=== PATIENT | male | born 1995 | race Caucasian/White ===

== ENCOUNTER → 2018-05-14 09:57 | Outpatient (CLI) | payer OTHER, SELFPAY ==
--- NOTE | 2018-05-14 10:28 | RAD_ITS ---
CLINICAL HISTORY: Male, 22 years old. Sprain of the right abdomen clavicular joint and pain. PROCEDURE: ARTHROGRAM - RIGHT SHOULDER CONSENT: The procedure as well as the benefits and possible complications including infection and bleeding were explained to the patient. Informed consent was obtained. FLUOROSCOPY TIME (if supplied): (0:30) minutes/seconds Injection Information: 10 cc of dilute Magnevist. Number of images obtained: 4 TECHNIQUE: (All elements of maximal sterile barrier technique followed, including US elements as applicable) The patient was in the supine position. The overlying skin was prepped and draped in usual sterile fashion. Following local anesthetic application and under direct fluoroscopic guidance, a 22-gauge spinal needle was placed into the shoulder joint. 2 cc of Isovue-300 was injected for confirmation. Following this, 10 cc of dilute Magnevist was injected. The patient tolerated the procedure well. RAD/Arthrogram Shoulder w/ MRI IMPRESSION: Successful right shoulder arthrogram with injection of 10 cc of dilute Magnevist for MRI of the shoulder. Electronically Signed: Keyon Cervantes, at 11:33 EDT , Service support ,
--- NOTE | 2018-05-14 11:30 | MRI_ITS ---
STUDY: MR RIGHT SHOULDER ARTHROGRAPHY REASON FOR EXAM: Right shoulder soreness after a fall 1 year ago. TECHNIQUE: Standardized fat and water weighted pulse sequences were obtained in all 3 orthogonal planes after intra-articular instillation of dilute Magnevist. COMPARISON: Arthrogram performed prior to the MRI. FINDINGS: Normal supraspinatus tendon. Normal infraspinatus tendon. Normal subscapularis tendon. Normal teres minor tendon. Normal supraspinatus muscle. Normal infraspinatus muscle. Normal subscapularis muscle. Normal teres minor muscle. Normal glenohumeral articulation. There is mild cystic change of the posterior aspect of the greater tuberosity. There is a SLAP lesion (T1 coronal images 8-10) with extension into the posterior labrum (T1 axial images 11-14). Normal intracapsular long biceps tendon. There is a suspected small intra-articular body in the bicipital tendon sheath (T1 coronal image 12) measuring 0.2 cm in length. Normal labrum. Normal capsulo- ligamentous complex. Normal rotator interval. Normal acromioclavicular articulation. The acromial apophysis is unfused (T1 axial image 5). There is a Type I morphology (flat undersurface), with a neutral orientation. There is no subacromial-subdeltoid bursal fluid. Normal visualized coracohumeral and coracoacromial ligaments. There is mild iatrogenic edema in the proximal anterior deltoid muscle. Normal trapezius muscle. MRI/Upper Ext Jt Only W/Contrast IMPRESSION: SLAP lesion extending into the posterior labrum. Suspected small intra-articular body in the bicipital tendon sheath. Electronically Signed: Taimr Whitfield MD at 12:24 EDT Tel , Service support ,
== END ==
PROVIDERS: Family Provider Family Medicine; PCP Family Medicine; Referring Provider Physician Assistant; Visit Provider Physician Assistant
DX: S43.51XA Sprain of right acromioclavicular joint, initial encounter (principal)
CPT/HCPCS: 23350; 73222; 77002; A9577; Q9967